=== PATIENT | male | born 1995 | race Caucasian/White ===

== ENCOUNTER 2022-09-02 17:10 | Emergency (ER) | payer MEDICAID, OTHER ==
[~2022-09-02] VITALS: Ht 190.5 cm; Wt 76.2 kg
[2022-09-02 17:12] VITALS: BP 142/84
== END 2022-09-02 18:28 | disposition left against medical advice (07) ==
LOC: M ED 17:10
DX: Z53.21 Procedure and treatment not carried out due to patient leaving prior to being seen by health care provider (principal)